=== PATIENT | male | born 1935 | race Caucasian/White ===

== ENCOUNTER → 2016-02-25 | Outpatient (CLI) | payer MEDICARE ==
[~2016-02-25] MED LIST: /ESOM40CA OR; /MOXI40TA OR; ACET65TA OR; ALLO300T OR; ASPI81TA83 OR; CALCCHW12 OR; HYDR25TA6 OR; LISI20TA5 OR; LOPR50TA OR; MULTIVIT PO; SIMV20TA2 OR
--- NOTE | 2016-02-25 11:45 | REP ---
Prostate sonography: History: Elevated PSA. Sonographic findings: Trans rectal prostate sonography demonstrates unremarkable seminal vesicles. Prostate gland is heterogeneously enlarged with calcifications and cystic changes noted. Glandular dimensions are measured at 5.9 x 3.7 x 5.2 cm with a calculated glandular volume of 59.1 ml. There are several nodules identified in the prostate including a 1.1 cm nodule on the right and two sub-centimeter nodules on the left. Transrectal sonographic guidance provided to Dr. Castillo who performed trans rectal ultrasound guided needle biopsy procedure . Signed by Gabino Gonzales MD 02/25/2016 11:36 A
== END | disposition home or self-care (01) ==
LOC: M SMT PRO 09:14
PROVIDERS: ATTEND Urology
DX: C61 Malignant neoplasm of prostate (principal); N41.8 Other inflammatory diseases of prostate
CPT/HCPCS: 55700; 76872; 76942; G0416

== ENCOUNTER → 2016-03-17 | Outpatient (CLI) | payer MEDICARE ==
--- NOTE | 2016-03-17 15:30 | RADONC ---
RADIATION ONCOLOGY CONSULTATION NOTE: DATE: 03/17/2016 RADIATION CHART NUMBER: [id number] DIAGNOSIS: Prostate cancer. STAGE: II B, [id number] ECOG PERFORMANCE STATUS: 0 Mr. Finn is a very pleasant 80-year-old white male with the diagnosis of a stage II B, [id number] moderately differentiated Pankaj score 6 (3-3) adenocarcinoma of prostate who is presenting to us today for consideration of definitive external beam radiation therapy with IMRT/IGRT. HISTORY OF PRESENT ILLNESS: The patient was in his usual state of health and was found to have an elevated PSA which reached 7.95 on 01/31/2016. On 02/25/2016, the patient underwent prostatic needle biopsy and pathology revealed a Pankaj score 6 (3-3) adenocarcinoma of the prostate involving both the left and the right sides. The patient did well since surgery and is now presenting to us for discussion of definitive external beam radiation therapy with IMRT/IGRT. PAST MEDICAL HISTORY: The patient's past medical history is positive for coronary artery occlusions. He also has a history of arthritis. The patient in addition had a history of mucosal melanoma of the nose and has been treated in this department with radiation in the past. He is also has a cholecystectomy. ALLERGIES: The patient has no known drug allergies. SOCIAL HISTORT: The patient has smoked one pack of cigarettes a day for 10 years. He quit in 1963. He drinks alcohol socially. FAMILY HISTORY: The patient's family history is positive for a brother with prostate cancer and a father with prostate cancer. REVIEW OF SYSTEMS: The patient's review of systems is positive for occasional back pain secondary to sciatica but is otherwise noncontributory. He denies nausea, vomiting, fevers, chills, night sweats, diplopia, headaches, anxiety or depression, anorexia, weight loss, visual disturbances, chest pain, urinary or bowel difficulties, bone pain, or neurological problems. PHYSICAL EXAMINATION: The patient is a well-developed, well-nourished male in no acute distress. HEENT exam is normocephalic, atraumatic. Extraocular movements are intact. There is no palpable cervical, supraclavicular, infraclavicular, axillary, or inguinal lymphadenopathy present. Lungs are clear to auscultation and percussion. Heart has a regular rate and rhythm. Abdomen is benign with no hepatosplenomegaly, masses, or tenderness. Rectal examination reveals a normal anal sphincter tone. His prostate is smooth with no evidence of nodularity. Skeletal examination reveals no tenderness to pressure or percussion of the bony skeleton. Extremities reveal no clubbing, cyanosis, or edema. Neurologic exam is grossly intact, as is the remainder of the physical examination. MEDICAL NECESSITY: IMRT/IGRT is clinically indicated for the highly conformal dose planning required. The target volume is in close proximity to critical structures, such as the rectum, bladder, small bowel, and femoral heads. The volume of interest must be covered with narrow margins to adequately protect immediately adjacent structures. The plan requires interpretation of complex testing such as CT localization. As noted above, special planning (IMRT) and localizing (IGRT) is required and essential to maximally protect sensitive normal tissue structures which cannot be accomplished using conventional 3-dimensional planning. ASSESSMENT: Clearly, the patient is a candidate for this treatment and I have so informed him. I have discussed with the patient in detail the potential benefits as well as possible acute and chronic sequelae of external beam radiation therapy. We have discussed logistics of treatment planning, simulation and subsequent fractionated daily radiation treatment. I have referred the patient back to Dr. Castillo for placement of fiducial markers. Following that, treatment planning will begin. Thank you for allowing us to participate in the care of this very pleasant gentleman. If I can be of any further assistance or provide you with any information, please feel free to contact me anytime. As always warm regards, cc: MD Ludwin aRm Jr, MD
== END ==
LOC: M ONCR 09:08
PROVIDERS: ATTEND Radiology Radiation Oncology
DX: C61 Malignant neoplasm of prostate (principal)
CPT/HCPCS: 96372; G0463; J9217

== ENCOUNTER → 2016-03-31 | Outpatient (CLI) | payer MEDICARE ==
--- NOTE | 2016-03-31 10:10 | REP ---
ULTRASOUND GUIDANCE FOR FIDUCIARY MARKER PLACEMENT: 03/31/2016. Clinical history: Prostate carcinoma. Technique: Six images from ultrasound guidance provided to Dr. Castillo for fiduciary marker placement in the prostate. The technologist documents six fiduciary markers placed by Dr. Castillo. Heterogeneous appearance of the prostate. Very limited views of the prostate. Impression: 1. Fiduciary marker placement via transrectal approach, under ultrasound guidance. Signed by Florencio Alexander MD 03/31/2016 10:11 A
== END ==
LOC: M SMT 08:49
PROVIDERS: ATTEND Urology
DX: C61 Malignant neoplasm of prostate (principal)
CPT/HCPCS: 55876; 76872; A4648

== ENCOUNTER → 2016-04-14 | Outpatient (CLI) | payer MEDICARE ==
[2016-04-14 09:30] LABS: MEAN CORPUSCULAR HEMOGLOBIN 32.6 pg (27.0-33.0); MEAN CORPUSCULAR HGB CONC 33.5 g/dl (32.0-36.5); MEAN CORPUSCULAR VOLUME 97.4 fl (80.0-96.0); RED CELL DISTRIBUTION WIDTH 12.9 % (11.5-14.5); WHITE BLOOD COUNT 8.6 K/mm3 (4.0-10.0)
== END ==
LOC: M RAD 08:25
PROVIDERS: ATTEND Radiology Radiation Oncology
DX: C61 Malignant neoplasm of prostate (principal)

== ENCOUNTER → 2016-04-14 | Outpatient (RCR) | payer MEDICARE | LOC: M ONCR 09:59 | PROVIDERS: ATTEND Radiology Radiation Oncology | DX: C61 Malignant neoplasm of prostate (principal) ==

== ENCOUNTER 2016-04-15 11:24 | Outpatient (RCR) | payer MEDICARE ==
--- NOTE | 2016-04-27 12:34 | RADONC ---
RADIATION ONCOLOGY PROGRESS NOTE DATE: 04/27/2016 CHART NUMBER: [id number]. Mr. Finn is presently a dose of 540 cGy to his prostate and is tolerating treatments quite well at this point with no significant difficulties related to his radiation therapy other than some occasional burning of urination. REVIEW OF SYSTEMS: The patient's review of systems is positive for burning urination, but is otherwise noncontributory. He denies nausea, vomiting, fevers, chills, night sweats, diplopia, headaches, anxiety or depression, anorexia, weight loss, visual disturbances, chest pain, urinary or bowel difficulties, bone pain or neurological problems. PHYSICAL EXAMINATION: The patient's skin is in good condition with no evidence of radiation change present. There is no moist or dry desquamation. The remainder of his physical exam remains unchanged. Mr. Finn is tolerating treatments quite well and radiation will continue as scheduled. I have obtained a urine sample for urinalysis and culture and sensitivity.
--- NOTE | 2016-05-05 08:36 | RADONC ---
RADIATION ONCOLOGY PROGRESS NOTE DATE: 05/04/2016 CHART NUMBER: [id number] PROGRESS NOTE: Mr. Osborne is presently a dose of 1440 cGy to his prostate and is tolerating treatments quite well at this point with no significant difficulties related to his radiation therapy. He is having no significant urinary or bowel difficulties and no bone pain. REVIEW OF SYSTEMS: The patient's review of systems is largely noncontributory. Denies nausea, vomiting, fevers, chills, night sweats, diplopia, headaches, anxiety or depression, anorexia, weight loss, visual disturbances, chest pain, urinary or bowel difficulties, bone pain, or neurological problems. PHYSICAL EXAMINATION: The patient's skin is in good condition with no evidence of radiation change present. There is no moist or dry desquamation. The remainder of his physical exam remains unchanged. Mr. Osborne is tolerating treatments quite well and radiation will continue as scheduled.
--- NOTE | 2016-05-11 11:30 | RADONC ---
RADIATION ONCOLOGY PROGRESS NOTE: DATE: 05/11/2016 CHART NO: [id number] Mr. Finn is presently at a dose of 1800 cGy to his prostate and is tolerating treatments quite well at this point with no complaints related to his radiation therapy. He is having no urinary or bowel difficulties and no bone pain. REVIEW OF SYSTEMS: The patient's review of systems is noncontributory. He denies nausea, vomiting, fevers, chills, night sweats, diplopia, headaches, anxiety or depression, anorexia, weight loss, visual disturbances, chest pain, urinary or bowel difficulties, bone pain, or neurological problems. PHYSICAL EXAMINATION: The patient's skin is in good condition with no evidence of radiation change present. There is no moist or dry desquamation. The remainder of his physical exam remains unchanged. Mr. Finn is tolerating treatments quite well and radiation will continue as scheduled.
== END 2016-05-15 ==
LOC: M ONCR 11:24
PROVIDERS: ATTEND Radiology Radiation Oncology
DX: C61 Malignant neoplasm of prostate (principal)

== ENCOUNTER → 2016-04-27 | Outpatient (CLI) | payer MEDICARE | LOC: M LAB 08:47 | PROVIDERS: ATTEND Radiology Radiation Oncology | DX: R30.0 Dysuria (principal); C61 Malignant neoplasm of prostate ==

== ENCOUNTER 2016-05-18 08:42 | Outpatient (RCR) | payer MEDICARE ==
--- NOTE | 2016-05-19 07:45 | RADONC ---
RADIATION ONCOLOGY PROGRESS NOTE: DATE OF SERVICE: 05/18/2016 CHART NO: [id number] Mr. Finn is presently at a dose of 2700 cGy to his prostate and is tolerating treatments quite well at this point with no complaints related to his radiation therapy. He is having no urinary or bowel difficulties and no bone pain. REVIEW OF SYSTEMS: The patient's review of systems is noncontributory. Denies nausea, vomiting, fevers, chills, night sweats, diplopia, headaches, anxiety or depression, anorexia, weight loss, visual disturbances, chest pain, urinary or bowel difficulties, bone pain, or neurological problems. PHYSICAL EXAMINATION: The patient's skin is in good condition with no evidence of radiation change present. There is no moist dry desquamation. The remainder of his physical exam remains unchanged. Mr. Finn is tolerating treatments quite well and radiation will continue as scheduled.
--- NOTE | 2016-05-25 09:05 | RADONC ---
RADIATION ONCOLOGY PROGRESS NOTE DATE: 05/25/2016 CHART NUMBER: [id number]. Mr. Finn is presently at a dose of 3600 cGy to his prostate and is tolerating treatments quite well at this point with no complaints related to his radiation therapy. He is having no urinary or bowel difficulties and no bone pain. REVIEW OF SYSTEMS: The patient's review of systems is noncontributory. He denies nausea, vomiting, fevers, chills, night sweats, diplopia, headaches, anxiety or depression, anorexia, weight loss, visual disturbances, chest pain, urinary or bowel difficulties, bone pain or neurological problems. PHYSICAL EXAMINATION: The patient's skin is in good condition with no evidence of radiation change present. There is no moist or dry desquamation. The remainder of his physical exam remains unchanged. Mr. Finn is tolerating treatments quite well and radiation will continue as scheduled.
--- NOTE | 2016-06-01 08:54 | RADONC ---
RADIATION ONCOLOGY PROGRESS NOTE DATE: 06/01/2016 CHART NUMBER: [id number] Mr. Finn is presently just at 4500 cGy to his prostate and is tolerating treatments quite well at this point with no complaints related to his radiation therapy. He is having no urinary or bowel difficulties and no bone pain. REVIEW OF SYSTEMS: The patient's review of systems is noncontributory. Denies nausea, vomiting, fevers, chills, night sweats, diplopia, headaches, anxiety or depression, anorexia, weight loss, visual disturbances, chest pain, urinary or bowel difficulties, bone pain, or neurological problems. PHYSICAL EXAMINATION: The patient's skin is in good condition with no evidence of radiation change present. There is no moist or dry desquamation. The remainder of his physical exam remains unchanged. Mr. Finn is tolerating treatments quite well and radiation will continue as scheduled.
--- NOTE | 2016-06-08 09:47 | RADONC ---
RADIATION ONCOLOGY PROGRESS NOTE DATE: 06/08/2016 CHART NUMBER: [id number] Mr. Finn is presently at a dose of 5400 cGy to his prostate and is tolerating treatments quite well at this point with no complaints related to his radiation therapy. He is having no urinary or bowel difficulties and no bone pain. REVIEW OF SYSTEMS: The patient's review of systems is noncontributory. Denies nausea, vomiting, fevers, chills, night sweats, diplopia, headaches, anxiety or depression, anorexia, weight loss, visual disturbances, chest pain, urinary or bowel difficulties, bone pain, or neurological problems. PHYSICAL EXAMINATION: The patient's skin is in good condition with no evidence of radiation change present. There is no moist or dry desquamation. The remainder of his physical exam remains unchanged. Mr. Finn is tolerating treatments quite well and radiation will continue as scheduled.
== END 2016-06-14 ==
LOC: M ONCR 08:42
PROVIDERS: ATTEND Radiology Radiation Oncology
DX: C61 Malignant neoplasm of prostate (principal)

== ENCOUNTER 2016-06-15 10:46 | Outpatient (RCR) | payer MEDICARE ==
--- NOTE | 2016-06-15 14:19 | RADONC ---
RADIATION ONCOLOGY PROGRESS NOTE: DATE OF SERVICE: 06/15/2016 CHART NO: [id number] Mr. Finn is thus far at a dose of 5940 cGy and was last treated on Wednesday06/11/2016 to his prostate. As of Wednesday, he had been tolerating treatments extremely well with no complaints related to his radiation therapy or disease. Mr. Finn came in today and saw me before treatment, saying he had vertigo. He says over the weekend when he lays flat, he becomes exceedingly dizzy. It goes away when he sits up. He reports that he has already contacted his primary care doctor and is scheduled to see him later today. I asked the patient if he was willing to try and undergo treatment today and he said yes. Unfortunately, when he laid on the table he became quite dizzy and he insisted on stopping. In light of this, the patient will not be treated today. We will continue to follow him closely and may resume radiation tomorrow or Wednesday pending the results of his intervention with his medical physician. Once again, the patient had been doing quite well and clearly this issue is not related to radiation to his prostate. The patient's physical exam today showed skin with no evidence of radiation change present. The remainder of his physical exam was within normal limits.
--- NOTE | 2016-06-22 10:55 | RADONC ---
RADIATION ONCOLOGY PROGRESS NOTE: DATE: 06/22/2016 CHART NUMBER: [id number] Mr. Finn is presently at a dose of 6480 cGy to his prostate and is tolerating treatments quite well at his point with no complaints related to this radiation therapy. He is having no urinary or bowel difficulties and no bone pain. The patient's review of systems is noncontributory. He denies nausea, vomiting, fevers, chills, night sweats, diplopia, headaches, anxiety or depression, anorexia, weight loss, visual disturbances, chest pain, urinary or bowel difficulties, bone pain, or neurological problems. PHYSICAL EXAMINATION: The patient's skin is in good condition with no evidence of radiation change present. The remainder of his physical exam remains unchanged. Mr. Finn is tolerating treatments quite well and radiation will continue as scheduled.
--- NOTE | 2016-06-29 10:10 | RADONC ---
RADIATION ONCOLOGY DATE OF SERVICE: 06/29/2016 CHART NO: [id number] Mr. Finn is presently at a dose of 7380 cGy to his prostate and is tolerating treatments quite well at this point with no complaints related to his radiation therapy. He is having no urinary or bowel difficulties and no bone pain. REVIEW OF SYSTEMS: The patient's review of systems is noncontributory. Denies nausea, vomiting, fevers, chills, night sweats, diplopia, headaches, anxiety or depression, anorexia, weight loss, visual disturbances, chest pain, urinary or bowel difficulties, bone pain, or neurological problems. PHYSICAL EXAMINATION: The patient's skin is in good condition with no evidence of moist or dry desquamation. The remainder of his physical exam remains unchanged. Mr. Finn is tolerating treatments quite well and radiation will continue as scheduled.
--- NOTE | 2016-07-02 09:08 | RADONC ---
RADIATION ONCOLOGY TREATMENT SUMMARY DATE: 07/02/2016 CHART NUMBER: [id number]. DIAGNOSIS: Prostate cancer. STAGE: II B, [id number]. ECOG PERFORMANCE STATUS: Zero. TREATMENT SUMMARY: Mr. Finn is very pleasant, 81-year-old white male with the diagnosis of a stage II B, [id number], moderately differentiated [place] score 6 (3-3) adenocarcinoma of the prostate who presented to us for consideration of definitive external beam radiation therapy with IMRT/IGRT. We treated the patient to his prostate for a total dose of 7920 cGy delivered in 44 fractions of 180 cGy each over 71 elapsed days from 04/22/2016 through 07/02/2016. The patient's prostate was treated on the linear accelerator utilizing a 6MV photon beam via IMRT/IGRT. We initially treated the prostate and seminal vesicles to a dose of 5400 cGy and subsequently coming down to the prostate itself it delivered an additional 2520 cGy once again bringing the prostate to a total of 7920 cGy. Mr. Finn tolerated his treatments quite well and completed therapy without difficulty as prescribed. I have scheduled the patient to see me again in 1 month for further followup and he will continue to be followed by his other physicians as well. cc: MD Ludwin Ram Jr, MD
== END 2016-07-15 ==
LOC: M ONCR 10:46
PROVIDERS: ATTEND Radiology Radiation Oncology
DX: C61 Malignant neoplasm of prostate (principal)

== ENCOUNTER → 2016-08-05 | Outpatient (CLI) | payer MEDICARE ==
--- NOTE | 2016-08-06 08:12 | RADONC ---
RADIATION ONCOLOGY FOLLOWUP NOTE DATE: 08/05/2016 CHART NUMBER: [id number] DIAGNOSIS: Prostate cancer. STAGE: IIB, [id number]. ECOG PERFORMANCE STATUS: 0. FOLLOWUP NOTE: Mr. Finn is a very pleasant 81-year-old white male with the diagnosis of a stage IIB, [id number], moderately differentiated [place] score 6 (3-3) adenocarcinoma of prostate who is presenting to us today for routine followup visit 1 month post completion of external beam radiation therapy. The patient presents today reporting that he is doing quite well with no complaints at this time related to his radiation therapy or disease. He has no urinary or bowel difficulties and no bone pain. The patient's review of systems is noncontributory. He denies nausea, vomiting, fevers, chills, night sweats, diplopia, headaches, anxiety or depression, anorexia, weight loss, visual disturbances, chest pain, urinary or bowel difficulties, bone pain, or neurological problems. PHYSICAL EXAMINATION: The patient is a well-developed, well-nourished male in no acute distress. HEENT exam is normocephalic, atraumatic. Extraocular movements are intact. There is no palpable cervical, supraclavicular, infraclavicular, axillary, or inguinal lymphadenopathy present. Lungs are clear to auscultation and percussion. Heart has a regular rate and rhythm. Abdomen is benign with no hepatosplenomegaly, masses, or tenderness. Rectal examination reveals a normal anal sphincter tone. His prostate is smooth with no evidence of nodularity. Skeletal examination reveals no tenderness to pressure or percussion of the bony skeleton. Extremities reveal no clubbing, cyanosis, or edema. Neurologic exam is grossly intact as is the remainder of the physical examination. ASSESSMENT: The patient is clinically VIVIAN at this time and will be seen by us again in 6 months for further followup. He will also continue to be followed by his other physicians as well. cc: MD Ludwin Ram Jr, MD
== END ==
LOC: M ONCR 13:12
PROVIDERS: ATTEND Radiology Radiation Oncology
DX: C61 Malignant neoplasm of prostate (principal)

== ENCOUNTER → 2016-09-21 | Outpatient (REF) | payer MEDICARE ==
[2016-09-21 16:38] LABS: EOSINOPHILS 3 % (0-5)
[2016-09-21 16:40] LABS: PLATELET CLUMPS MODERATE AMT
[2016-09-21 16:42] LABS: POIKILOCYTOSIS 1+
[2016-09-24 00:07] LABS: Lyme Disease IgG Ab 18 kDa Ban Absent (.); Lyme Disease IgG Ab 23 kDa Ban Present (.); Lyme Disease IgG Ab 28 kDa Ban Absent (.); Lyme Disease IgG Ab 30 kDa Ban Absent (.); Lyme Disease IgG Ab 39 kDa Ban Absent (.); Lyme Disease IgG Ab 41 kDa Ban Present (.); Lyme Disease IgG Ab 45 kDa Ban Present (.); Lyme Disease IgG Ab 58 kDa Ban Absent (.); Lyme Disease IgG Ab 66 kDa Ban Absent (.); Lyme Disease IgG Ab 93 kDa Ban Absent (.); Lyme Disease IgG West Blot Int Negative (.); Lyme Disease IgM Ab 23 kDa Ban Present (.); Lyme Disease IgM Ab 39 kDa Ban Present (.); Lyme Disease IgM Ab 41 kDa Ban Present (.); Lyme Disease IgM Ab Quantitati 8.04 index (0.00-0.79); Lyme Disease IgM West Blot Int Positive (.)
== END ==
LOC: M LAB REF 12:48
PROVIDERS: ATTEND Internal Medicine
DX: R35.0 Frequency of micturition (principal); M79.1 Myalgia; D72.829 Elevated white blood cell count, unspecified

== ENCOUNTER → 2016-09-22 | Outpatient (REF) | payer MEDICARE ==
[2016-09-22 14:40] LABS: ANISOCYTOSIS 1+
== END ==
LOC: M LAB REF 12:59
PROVIDERS: ATTEND Nurse Practitioner Family
DX: R21 Rash and other nonspecific skin eruption (principal); D72.9 Disorder of white blood cells, unspecified

== ENCOUNTER → 2016-09-22 | Outpatient (REF) | payer MEDICARE | LOC: M LAB REF 09:41 | PROVIDERS: ATTEND Nurse Practitioner Family | DX: R21 Rash and other nonspecific skin eruption (principal); D72.9 Disorder of white blood cells, unspecified ==

== ENCOUNTER → 2016-09-22 | Outpatient (CLI) | payer MEDICARE ==
--- NOTE | 2016-09-22 11:05 | REP ---
CHEST, TWO VIEWS: COMPARISON: 12/23/2015 There is no evidence of acute infiltrate. No pleural effusion is seen. The heart is normal in size. The mediastinal silhouette is unremarkable. The visualized osseous structures are intact. There are degenerative changes of the spine. IMPRESSION: No acute pulmonary disease. Signed by Rigoberto Evans MD 09/22/2016 11:59 A
== END ==
LOC: M RAD 10:23
PROVIDERS: ATTEND Nurse Practitioner Family
DX: R05 Cough (principal); D72.829 Elevated white blood cell count, unspecified; R21 Rash and other nonspecific skin eruption

== ENCOUNTER → 2016-09-29 | Outpatient (REF) | payer MEDICARE ==
[2016-09-29 22:32] LABS: BANDS 1 % (< 11)
[2016-10-01 14:13] LABS: SJOGREN'S ANTI SS-A <0.2 AI (0.0-0.9); SJOGREN'S ANTI SS-B <0.2 AI (0.0-0.9)
== END ==
LOC: M LAB REF 16:36
PROVIDERS: ATTEND Internal Medicine
DX: R21 Rash and other nonspecific skin eruption (principal); D72.829 Elevated white blood cell count, unspecified; R53.81 Other malaise

== ENCOUNTER → 2016-10-02 | Outpatient (REF) | payer MEDICARE ==
[2016-10-02 14:42] LABS: BANDS 4 % (< 11)
== END ==
LOC: M LAB REF 12:53
PROVIDERS: ATTEND Internal Medicine
DX: D72.829 Elevated white blood cell count, unspecified (principal)

== ENCOUNTER → 2016-10-09 | Outpatient (REF) | payer MEDICARE | LOC: M LAB REF 12:15 | PROVIDERS: ATTEND Internal Medicine | DX: D72.829 Elevated white blood cell count, unspecified (principal) ==

== ENCOUNTER → 2016-11-05 | Outpatient (CLI) | payer MEDICARE | LOC: M SMT 10:58 | PROVIDERS: ATTEND Urology | DX: C61 Malignant neoplasm of prostate (principal) | CPT/HCPCS: 36415; 84153; G0463 ==

== ENCOUNTER → 2017-01-15 | Outpatient (CLI) | payer MEDICARE | LOC: M LAB 08:00 | PROVIDERS: ATTEND Radiology Radiation Oncology | DX: C61 Malignant neoplasm of prostate (principal) ==

== ENCOUNTER → 2017-01-20 | Outpatient (CLI) | payer MEDICARE ==
--- NOTE | 2017-01-20 10:49 | RADONC ---
RADIATION ONCOLOGY FOLLOWUP NOTE DATE OF SERVICE: 01/20/2017 CHART NUMBER: [id number]. DIAGNOSIS: Prostate cancer. STAGE: IIB, [id number]. ECOG PERFORMANCE STATUS: 0. FOLLOWUP NOTE: Mr. Finn is a very pleasant 81-year-old white male with the diagnosis of a stage IIB, [id number] moderately differentiated Pankaj score 6 (3-3) adenocarcinoma of the prostate, who is presenting to us today for routine followup visit 7 months post completion of external beam radiation therapy. The patient presents today reporting that he is doing quite well with no complaints at this time related to his radiation therapy or disease. He has no urinary or bowel difficulties and no bone pain. REVIEW OF SYSTEMS: The patient's review of systems is noncontributory. He denies nausea, vomiting, fevers, chills, night sweats, diplopia, headaches, anxiety or depression, anorexia, weight loss, visual disturbances, chest pain, urinary or bowel difficulties, bone pain, or neurological problems. PHYSICAL EXAMINATION: The patient is a well-developed, well-nourished male in no acute distress. HEENT exam is normocephalic, atraumatic. Extraocular movements are intact. There is no palpable cervical, supraclavicular, infraclavicular, axillary, or inguinal lymphadenopathy present. Lungs are clear to auscultation and percussion. Heart has a regular rate and rhythm. Abdomen is benign with no hepatosplenomegaly, masses, or tenderness. Rectal examination reveals a normal anal sphincter tone. His prostate is smooth with no evidence of nodularity. Skeletal examination reveals no tenderness to pressure or percussion of the bony skeleton. Extremities reveal no clubbing, cyanosis, or edema. Neurologic exam is grossly intact, as is the remainder of the physical examination. ASSESSMENT: The patient is clinically VIVIAN at this time and will be seen by us again in 6 months for further followup. He will also continue to be followed by his other physicians, as well. cc: MD Ludwin Ram Jr, MD
== END ==
LOC: M ONCR 10:07
PROVIDERS: ATTEND Radiology Radiation Oncology
DX: C61 Malignant neoplasm of prostate (principal)

== ENCOUNTER → 2017-04-15 | Outpatient (CLI) | payer MEDICARE ==
[2017-04-15 18:54] LABS: PROSTATIC SPECIFIC AG MONITOR < 0.01 NG/ML (< 4.0)
== END ==
LOC: M SMT 13:19
DX: C61 Malignant neoplasm of prostate (principal)
CPT/HCPCS: 84153

== ENCOUNTER → 2017-08-02 | Outpatient (CLI) | payer MEDICARE ==
[2017-08-02 08:52] LABS: PROSTATIC SPECIFIC AG MONITOR < 0.01 NG/ML (< 4.0)
== END ==
LOC: M LAB 07:40
DX: C61 Malignant neoplasm of prostate (principal)
CPT/HCPCS: 84153

== ENCOUNTER → 2017-08-04 | Outpatient (CLI) | payer MEDICARE | LOC: M ONCR 10:40 | DX: C61 Malignant neoplasm of prostate (principal) ==

== ENCOUNTER → 2018-08-01 | Outpatient (CLI) | payer MEDICARE ==
[~2018-08-01] MED LIST changes: -/ESOM40CA OR; -/MOXI40TA OR; +ASPI81TA26 PO; +ATOR40TA75 PO; +AVEL1TAB2 OR; +CALC500T46 PO; +LISI20TA PO; +METO50TA7 PO; +MULTCAP PO; +NEXI1CAP3 OR; +ZYLO300T6 PO
== END ==
LOC: M ONCM 08:25
PROVIDERS: ATTEND Radiology Radiation Oncology
DX: C61 Malignant neoplasm of prostate (principal)

== ENCOUNTER → 2018-08-03 | Outpatient (CLI) | payer MEDICARE ==
--- NOTE | 2018-08-05 06:51 | RADONC ---
RADIATION ONCOLOGY FOLLOWUP NOTE DATE: 08/03/2018 CHART #: [id number] DIAGNOSIS: Prostate cancer. STAGE: II B, [id number]. ECOG PERFORMANCE STATUS: 0. FOLLOWUP NOTE Mr. Finn is a very pleasant 83-year-old white male with the diagnosis of a stage II B, F8sS4W2, moderately differentiated [place] score 6 (3-3) adenocarcinoma of the prostate who is presenting to me today for routine followup visit 2 years post completion of external beam radiation therapy. The patient presents today reporting that he is doing quite well with no complaints at this time related to his radiation therapy or disease. He has no urinary or bowel difficulties and no bone pain. REVIEW OF SYSTEMS: The patient's review of systems is noncontributory. Denies nausea, vomiting, fevers, chills, night sweats, diplopia, headaches, anxiety or depression, anorexia, weight loss, visual disturbances, chest pain, urinary or bowel difficulties, bone pain, or neurological problems. PHYSICAL EXAMINATION: The patient is a well-developed, well-nourished male in no acute distress. HEENT exam is normocephalic, atraumatic. Extraocular movements are intact. There is no palpable cervical, supraclavicular, infraclavicular, axillary, or inguinal lymphadenopathy present. Lungs are clear to auscultation and percussion. Heart has a regular rate and rhythm. Abdomen is benign with no hepatosplenomegaly, masses, or tenderness. Rectal examination reveals a normal anal sphincter tone. His prostate is smooth with no evidence of nodularity. Skeletal examination reveals no tenderness to pressure or percussion of the bony skeleton. Extremities reveal no clubbing, cyanosis, or edema. Neurologic exam is grossly intact, as is the remainder of the physical examination. ASSESSMENT: The patient is clinically VIVIAN at this time. He reports that he is seeing Dr. Castillo routinely and is scheduled see Dr. Castillo again in 6 months. In addition, he is also being followed by medical oncology for his previous diagnosis of melanoma and seeing Dr. Pool on a routine followup basis. In light of this and at the patient's request, I am discharging him from my followup except on a p.r.n. basis. I let the patient know that I am available to him at anytime if I could be of any assistance in the future or provide him with any information whatsoever. cc: MD Ludwin Ram Jr, MD Sara McGee, MD
== END ==
LOC: M ONCR 09:46
PROVIDERS: ATTEND Radiology Radiation Oncology
DX: Z85.46 Personal history of malignant neoplasm of prostate (principal); Z92.3 Personal history of irradiation

== ENCOUNTER → 2019-02-03 | Outpatient (CLI) | payer MEDICARE ==
[~2019-02-03] MED LIST changes: +CALCD50TA; +INTRTAB PO; -LISI20TA PO; +LISI20TA19 PO
== END ==
LOC: M LAB 08:01
PROVIDERS: ATTEND Urology
DX: C61 Malignant neoplasm of prostate (principal)

== ENCOUNTER → 2019-02-20 | Outpatient (REF) | payer MEDICARE | LOC: M LAB REF 10:50 | PROVIDERS: ATTEND Internal Medicine | DX: D51.9 Vitamin B12 deficiency anemia, unspecified (principal) ==

== ENCOUNTER → 2019-06-23 | Outpatient (REF) | payer MEDICARE | LOC: M LAB REF 12:11 | PROVIDERS: ATTEND Internal Medicine | DX: D51.9 Vitamin B12 deficiency anemia, unspecified (principal) ==

== ENCOUNTER → 2020-02-05 | Outpatient (CLI) | payer MEDICARE ==
[~2020-02-05] MED LIST changes: -LISI20TA19 PO; +LISI20TA35 PO; +NORV5TAB PO
== END ==
LOC: M LAB 09:37
PROVIDERS: ATTEND Urology
DX: C61 Malignant neoplasm of prostate (principal)

== ENCOUNTER → 2020-09-18 | Outpatient (CLI) | payer MEDICARE | LOC: M LABSMTC 13:12 | PROVIDERS: ATTEND Internal Medicine Cardiovascular Disease | DX: Z01.812 Encounter for preprocedural laboratory examination (principal); Z20.822 Contact with and (suspected) exposure to COVID-19 ==

== ENCOUNTER → 2020-12-23 | Outpatient (CLI) | payer MEDICARE ==
[2020-12-23 09:47] LABS: BASO # 0.1 10^3/uL (0.0-0.2); BASO % 0.6 % (0.0-1.0); EOS # 0.2 10^3/uL (0.0-0.5); HEMATOCRIT 42.7 % (42.0-52.0); HEMOGLOBIN 13.7 g/dl (13.5-17.5); LYMPH # 1.8 10^3/uL (1.5-5.0); MEAN CORPUSCULAR HEMOGLOBIN 30.5 pg (27.0-33.0); MEAN CORPUSCULAR HGB CONC 32.1 g/dl (32.0-36.5); MEAN CORPUSCULAR VOLUME 95.1 fl (80.0-96.0); MONO # 1.4 10^3/uL (0.0-0.8); MONO % 12.8 % (2.0-8.0); NEUTROPHILS # 7.4 10^3/uL (1.5-8.5); PLATELET COUNT, AUTOMATED 312 10^3/uL (150-450); RED BLOOD COUNT 4.49 10^6/uL (4.30-6.10); WHITE BLOOD COUNT 11.1 10^3/uL (4.0-10.0)
[2020-12-23 10:18] LABS: ALBUMIN 3.6 GM/DL (3.2-5.2); ALT/SGPT 43 U/L (12-78); BILIRUBIN,TOTAL 0.4 MG/DL (0.2-1.0); BLOOD UREA NITROGEN 20 MG/DL (7-18); CALCIUM LEVEL 9.3 MG/DL (8.8-10.2); CARBON DIOXIDE LEVEL 29 MEQ/L (21-32); CHLORIDE LEVEL 107 MEQ/L (98-107); GLOMERULAR FILTRATION RATE > 60.0 (>35); GLUCOSE, FASTING 161 MG/DL (70-100); LDH LACTATE DEHYDROGENASE 215 U/L (87-241); POTASSIUM SERUM 4.4 MEQ/L (3.5-5.1); SODIUM LEVEL 139 MEQ/L (136-145); TOTAL PROTEIN 6.5 GM/DL (6.4-8.2)
== END ==
LOC: M LAB 09:02
PROVIDERS: ATTEND Specialist
DX: Z08 Encounter for follow-up examination after completed treatment for malignant neoplasm (principal); Z85.46 Personal history of malignant neoplasm of prostate; Z85.820 Personal history of malignant melanoma of skin

== ENCOUNTER → 2021-02-17 | Outpatient (CLI) | payer MEDICARE ==
[~2021-02-17] MED LIST changes: +ALLO300T2 PO; +B-12100011 SL; +MULT-90 PO
== END ==
LOC: M LAB 07:48
PROVIDERS: ATTEND Urology
DX: C61 Malignant neoplasm of prostate (principal)

== ENCOUNTER → 2021-11-24 | Outpatient (CLI) | payer MEDICARE | LOC: M RAD 14:46 | PROVIDERS: ATTEND Physician Assistant | DX: I65.23 Occlusion and stenosis of bilateral carotid arteries (principal) ==

== ENCOUNTER → 2022-02-23 | Outpatient (CLI) | payer MEDICARE ==
[~2022-02-23] MED LIST changes: +AMLO1TAB24; +OLME20TA2
== END ==
LOC: M LAB 09:31
PROVIDERS: ATTEND Urology
DX: C61 Malignant neoplasm of prostate (principal)

== ENCOUNTER → 2022-10-28 | Outpatient (REF) | payer MEDICARE | LOC: M LAB REF 12:48 | PROVIDERS: ATTEND Internal Medicine | DX: Z51.81 Encounter for therapeutic drug level monitoring (principal) ==

== ENCOUNTER → 2023-01-11 | Outpatient (CLI) | payer MEDICARE | LOC: M RAD 12:08 | PROVIDERS: ATTEND Physician Assistant | DX: I65.23 Occlusion and stenosis of bilateral carotid arteries (principal) ==

== ENCOUNTER → 2023-02-23 | Outpatient (CLI) | payer MEDICARE ==
[~2023-02-23] MED LIST changes: -OLME20TA2; +OLME20TA50
== END ==
LOC: M LAB 13:26
PROVIDERS: ATTEND Urology
DX: C61 Malignant neoplasm of prostate (principal)

== ENCOUNTER → 2023-04-30 | Outpatient (CLI) | payer MEDICARE ==
[~2023-04-30] MED LIST changes: -AMLO1TAB24; +AMLO1TAB24 PO; -OLME20TA50; +OLME20TA50 PO
== END ==
LOC: M WUC 08:18
PROVIDERS: ATTEND Internal Medicine
DX: M47.896 Other spondylosis, lumbar region (principal); M46.96 Unspecified inflammatory spondylopathy, lumbar region

== ENCOUNTER 2023-05-04 11:11 | Day surgery (SDC) | payer MEDICARE ==
[~2023-05-04] VITALS: Ht 172.7 cm; Wt 99.1 kg
[2023-05-04] MEDS: PHENYLEPHRINE 2.5% OPHTH SOL 2ML OS SCH (12:08)
[2023-05-04] MEDS: PROPARACAINE 0.5% OPHTH SOL 15ML OS ONE (12:08)
[2023-05-04] MEDS: ATROPINE SULFATE 1% OPHTH SOLN 2ML BTL OS SCH (12:08)
[2023-05-04] MEDS: TROPICAMIDE 1% OPHTH SOLN 15ML OS SCH (12:08)
[2023-05-04] MEDS: OFLOXACIN 0.3 % (OCUFLOX) OPTH SOL 5ML OS SCH (12:09)
[2023-05-04] MEDS: BSS IRR 500ML/OMIDRIA 4ML IRR BAG (OR ONLY) As Ordered ONE (12:53)
[2023-05-04] MEDS: LIDOCAINE 1% SDV 5ML VIAL As Ordered ONE (12:53)
[2023-05-04] MEDS: CEFUROXIME 1MG/0.1ML INTRACAMERAL INJ As Ordered ONE (12:53)
[2023-05-04] MEDS ORDERED: fentaNYL 100 MCG/2 ML INJECTION As Ordered ONE (12:56)
[2023-05-04] MEDS ORDERED: MIDAZOLAM INJ 2MG/2ML VIAL As Ordered ONE (12:56)
[2023-05-04 13:03] VITALS: BP 172/78; TEMP 96.7; O2SAT 99
== END 2023-05-04 13:22 | disposition home or self-care (01) ==
LOC: M SDC 11:11
PROVIDERS: ATTEND Ophthalmology
DX: H25.12 Age-related nuclear cataract, left eye (principal); I10 Essential (primary) hypertension; I25.10 Atherosclerotic heart disease of native coronary artery without angina pectoris; E78.5 Hyperlipidemia, unspecified; M10.9 Gout, unspecified; K57.92 Diverticulitis of intestine, part unspecified, without perforation or abscess without bleeding; M81.0 Age-related osteoporosis without current pathological fracture; Z95.1 Presence of aortocoronary bypass graft; Z92.3 Personal history of irradiation; Z85.46 Personal history of malignant neoplasm of prostate; Z79.899 Other long term (current) drug therapy; Z79.82 Long term (current) use of aspirin; Z92.21 Personal history of antineoplastic chemotherapy
CPT/HCPCS: 66984; J0697; J1097; J2250; J3010; V2632

== ENCOUNTER → 2023-10-28 | Outpatient (CLI) | payer MEDICARE | LOC: M SOG 07:21 | PROVIDERS: ATTEND Physician Assistant | DX: M54.50 Low back pain, unspecified (principal); M47.816 Spondylosis without myelopathy or radiculopathy, lumbar region; I70.0 Atherosclerosis of aorta ==

== ENCOUNTER → 2024-01-17 | Outpatient (CLI) | payer MEDICARE | LOC: M RAD 09:42 | PROVIDERS: ATTEND Physician Assistant | DX: I65.23 Occlusion and stenosis of bilateral carotid arteries (principal) ==

== ENCOUNTER → 2024-02-21 | Outpatient (CLI) | payer MEDICARE | LOC: M LAB 09:52 | PROVIDERS: ATTEND Urology | DX: C61 Malignant neoplasm of prostate (principal) ==

== ENCOUNTER → 2024-12-12 | Outpatient (REF) | payer MEDICARE | LOC: M LAB REF 15:18 | PROVIDERS: ATTEND Internal Medicine | DX: D51.9 Vitamin B12 deficiency anemia, unspecified (principal) ==

== ENCOUNTER → 2025-01-17 | Outpatient (CLI) | payer MEDICARE | LOC: M RAD 12:01 | PROVIDERS: ATTEND Physician Assistant | DX: I65.23 Occlusion and stenosis of bilateral carotid arteries (principal) ==